=== PATIENT | male | born 1960 | race Caucasian/White ===

== ENCOUNTER 2018-12-29 15:03 | Inpatient (IN) | payer OTHER ==
[2018-12-29] MEDS ORDERED: Ondansetron INJ* 2 MG/ML VIAL ONE (15:26)
[2018-12-29] MEDS ORDERED: fentaNYL* 50 MCG/ML 2 ML VIAL (100 MCG VIAL) ONE (15:55)
--- NOTE | 2018-12-29 15:56 | ED ---
HPI Chest Pain - HPI Summary HPI Summary: Pt was brought in by EMS on STEMI alert. He had been having stuttering chest pain for several days and eventually called EMS this afternoon with stronger and more persistent pain. Pt was met in the ED by Dr Acosta, my involvement was limited to a brief assessment of mental status, color and respiratory status, which all appeared unremarkable. - History of Current Complaint Chief Complaint: EDChestPainROMI - Allergy/Home Medications Allergies/Adverse Reactions: Allergies Allergy/AdvReac Type Severity Reaction Status Date / Time No Known Allergies Allergy Verified 03/29/18 09:28 PMH/Surg Hx/FS Hx/Imm Hx Endocrine/Hematology History: Denies: Hx Diabetes Cardiovascular History: Reports: Hx Hypercholesterolemia, Hx Hypertension - ON MEDICATION FOR Denies: Hx Pacemaker/ICD Respiratory History: Reports: Hx Sleep Apnea - NONE NOW THAT HAS HAD TONSILS REMOVED PER PATIENT Denies: Hx Asthma History: Denies: Hx Dialysis, Hx Renal Disease Musculoskeletal History: Reports: Hx Back Problems, Other Musculoskeletal History - Torn R Rotator cuff, 3 herniated discs in neck, dejenerative disc in back Sensory History: Reports: Hx Contacts or Glasses - contacts Denies: Hx Hearing Aid Opthamlomology History: Reports: Hx Contacts or Glasses - contacts Neurological History: Reports: Hx Headaches - 4-5 WK, Other Neuro Impairments/ Disorders - ON ADDERALL-TO HELP STAY AWAKE DURING THE DAY. PAIN CLINIC PT. Psychiatric History: Reports: Hx Attention Deficit Hyperactivity Disorder Denies: Hx Panic Disorder - Surgical History Surgery Procedure, Year, and Place: 2009 [place]ON[place]OMY [facility] [place] 2009 LYPOMA [facility] [place]. 2011 BILATERAL CARPAL TUNNEL RELEASE Hx Anesthesia Reactions: No Infectious Disease History: Denies: Traveled Outside the [place] in Last 30 Days - Family History Known Family History: Positive: Cardiac Disease, Diabetes, Other - neg lupus; neg rheumatic dz. - Social History Alcohol Use: None Hx Substance Use: No Substance Use Type: Reports: None Hx Tobacco Use: No Smoking Status (MU): Never Smoked Tobacco Review of Systems Positive: Chest Pain All Other Systems Reviewed And Are Negative: No Physical Exam - Summary Physical Exam Summary: General: This is a well-developed, well- nourished man lying on the stretcher in no apparent distress. The patient does not appear ill or toxic. Neck: No obvious swellings. Lungs: There are no signs of respiratory distress. Coronary: Peripheral perfusion is good. Abdomen: The abdomen appears normal and is nondistended. Genitourinary: Deferred Back: Good range of motion is observed. Extremities: Good range of motion was observed in all 4 extremities. There is no sign of any trauma to the extremities. Neurologic: The patient is awake and alert, speech is fluent and conversation is appropriate. Psychiatric: The patients affect is felt to be normal and appropriate. There is no sign of any hallucinations or delusions, or any other signs of psychosis. Diagnostics - Laboratory Result Diagrams: 12/30/18 04:17 12/30/18 04:17 Lab Statement: Any lab studies that have been ordered have been reviewed, and results considered in the medical decision making process. Chest Pain Course/Dx - Diagnoses Provider Diagnoses: Acute ST elevation myocardial infarction (STEMI) of inferior wall Discharge - Sign-Out/Discharge Documenting (check all that apply): Patient Departure Patient Received Moderate/Deep Sedation with Procedure: No - Discharge Plan Condition: Good Disposition: ADMITTED TO [facility] - Billing Disposition and Condition Condition: GOOD Disposition: Admitted to [facility]
[2018-12-29] MEDS ORDERED: Nitroglycerin TAB 0.4 MG* 0.4 MG TAB SL PRN (16:38)
[2018-12-29] MEDS ORDERED: NS 0.9% 1000 ML** 1,000 ML IV SCH (16:45)
[2018-12-29] MEDS ORDERED: Atorvastatin* 80 MG TAB PO SCH (17:00)
[2018-12-29 17:19] LABS: ABS Basophils 0.1 10^3/ul (0-0.2); ABS Eosinophils 0.1 10^3/ul (0-0.6); ABS Lymphocytes 1.2 10^3/ul (1.0-4.8); ABS Monocytes 0.5 10^3/ul (0-0.8); Eosinophil % 1.2 %; Hematocrit 51 % (42-52); Lymphocyte % 13.1 %; Mean Corpuscular HGB Conc 34 g/dL (31-36); Mean Corpuscular Hemoglobin 28 pg (27-31); Mean Corpuscular Volume 84 fL (80-94); Mean Platelet Volume 8.8 fL (7.4-10.4); Nucleated Red Blood Cells % 0.4; Platelet Count 156 10^3/uL (150-450); Red Blood Count 6.06 10^6 /uL (4.18-5.48); Red Cell Distribution Width 14 % (10-15); White Blood Count 8.8 10^3/uL (3.5-10.8)
[2018-12-29 17:36] LABS: ALT 53 U/L (7-52); AST 33 U/L (13-39); Albumin 4.1 g/dL (3.2-5.2); Albumin/Globulin Ratio 1.5 (1-3); Alkaline Phosphatase 90 U/L (34-104); Anion Gap 4 mmol/L (2-11); BUN/Creatinine Ratio 12.6 (8-20); Blood Urea Nitrogen 14 mg/dL (6-24); CO2 Carbon Dioxide 28 mmol/L (22-32); Calcium 8.8 mg/dL (8.6-10.3); Chloride 103 mmol/L (101-111); Creatine Kinase 109 U/L (10-223); EGFR African American 82.9 (>60); EGFR Non-African American 68.5 (>60); Globulin 2.8 g/dL (2-4); Glucose 116 mg/dL (70-100); Potassium 4.4 mmol/L (3.5-5.0); Sodium 135 mmol/L (135-145); Total Protein 6.9 g/dL (6.4-8.9)
[2018-12-29 17:37] LABS: Troponin I 0.51 ng/mL (<0.04)
[2018-12-29] MEDS: Metoprolol Tartrate TAB* 25 MG PO SCH (17:41)
[2018-12-29] MEDS ORDERED: Acetaminophen TAB* 325 MG PO PRN (17:57)
[2018-12-29] MEDS ORDERED: nitroGLYCERIN DRIP* 25,000 MCG/250 ML BTL IV SCH (18:00)
[2018-12-29] MEDS ORDERED: Lidocaine PATCH 5%* 1 PATCH TRANSDERM PRN (18:02)
--- NOTE | 2018-12-29 18:34 | CATH ---
"*[facility]* [place] [address] Main: [phone] [email or web address] Cardiac Catheterization Patient: Bro Bergeron : 1960 Study Date: 12/29/2018 Age: 58 Gender: M HR: Height: 70 in /177.8 cm BSA: 2.08 m^2 Weight: 190.1 lb /86.4 kg BMI: 27.3 kg/m^2 Counselor Aid: Stevan Acosta MD Ordering Physician: Stevan Acosta MD Referring Physician: Stevan Acosta MD, Stefek Paul, --- Procedures performed: - Right coronary angiography. - Left coronary angiography. - Left heart catheterization with angiography. - Percutaneous intervention on the 100% stenosis in the mid right coronary. Stent placement. Balloon angioplasty. Summary: 1. Left main: Distal vessel lesion: There is a 65-70% stenosis. There was haze noted. 2. LAD: Ostial lesion: There is an 80% stenosis. Mid-vessel lesion: There is an 85% stenosis just after the 2nd septal dinkey operator slag.. 3. Left circumflex: Proximal vessel lesion: There is an 85% stenosis. 4. Right coronary: Mid-vessel lesion: The diagnostic study demonstrated a 35 mm (L), 100% stenosis. The lesion is a likely culprit for the patient's clinical presentation. The lesion presents an ACC/AHA type C "high risk" lesion for intervention. Stent placement was performed (see 1st lesion intervention). Following intervention, there is no residual stenosis with SAMY grade 3 flow (brisk flow). Residual significant disease was seen in the proximal posterior descending artery and in the proximal posterior left ventricle branch. 5. Right posterior descending: Proximal vessel lesion: There is an 80% stenosis. 6. 2nd right posterolateral: Lesion: There is a 65% hazy proximal stenosis. 7. Left ventricle: Systolic function is mildly to moderately reduced. The estimated ejection fraction is 40-45%. Moderate hypokinesis of the posterobasal myocardium. Moderate hypokinesis of the apical myocardium. Mild hypokinesis of the anterolateral myocardium. Recommendations: 1. The patient underwent successful coronary percutaneous coronary intervention with 3 stents placed to the mid to distal right coronary artery. He has significant residual disease as described below. 2. The patient will be transferred to [facility] for coronary artery bypass surgery. History: Risk factors: Hypertension. Dyslipidemia. Medications: The patient received no antianginal therapy in the last two weeks. Study data: Study status: Cardiac cath: emergent. Percutaneous coronary intervention: emergent. Immediate percutaneous coronary intervention for STEMI. ST-elevated myocardial infarction or STEMI equivalent was noted on the first ECG. The first device was activated on 12/29/2018at 03:29 PM. The patient originally presented to an outside facility on 12/29/2018 and was transferred here for immediate PCI for STEMI. Location: Catheterization laboratory. Consent: The risks, benefits, and alternatives to the procedure were explained to the patient and/or their healthcare medical collections representative and written informed consent was obtained. All available pre-procedure labs were reviewed. Height: 177.8 cm. 70 in. Weight: 86.4 kg. 190.1 lb. Body surface area: 2.08 m^2. Body mass index: 27.3 kg/m^2. Procedure: 1. Initial setup. The patient was brought to the laboratory. Surface ECG leads, blood pressure measurements, and pulse oximetric signals were monitored. A baseline seven lead ECG was recorded. A time out was observed per protocol. 2. Skin preparation. The planned puncture sites were prepped and draped in the usual sterile manner. 3. Local anesthesia. 1% lidocaine was administered. 4. Supplemental oxygen. Oxygen, 2 L/min was administered throughout the procedure. 5. Local anesthesia. 1% lidocaine (2 ml) was administered. 6. Right radial artery access. A 6F Glidesheath Slender sheath was advanced into the vessel. 7. ACT was 227 sec. This was reflective of the 7,000 units given when he first arrived to the lab. An Additional 2000units were given. 8. ACT was 562 sec. 9. A stent was placed in the stenosis in the mid right coronary artery. See detailed description below (1st lesion intervention). 10. Selective right coronary angiography. An IR 1.5 Heartrail III 6F catheter was advanced into the right coronary vessel ostium under fluoroscopic guidance. Contrast was injected using 2 injections. Images were obtained in multiple projections. 11. Selective left coronary angiography. The procedure was attempted using a 5F TIG 4.0 catheter, but proper positioning could not be achieved, and the catheter was exchanged for a 5F FL 4.0 Diagnostic Impulse catheter which was advanced into the left coronary vessel ostium under fluoroscopic guidance. Contrast was injected using 2 injections. Images were obtained in multiple projections. 12. Left heart catheterization with angiography. A 5F PIG Short Radial catheter was advanced across the aortic valve to the left ventricle under fluoroscopic guidance. 24 ml of contrast was injected at 12 ml/s. 13. Right radial artery hemostasis. Vessel closure was achieved with a Regular Vasc Band device. Study completion: Minimal estimated blood loss. All catheters inserted during the procedure were removed. There were no apparent complications. Administered medications: Nitroglycerin, infusion, at a rate of 3mcg/min, IV. (Radial) Nitroglycerin, 300mcg, intra-arterially. (Radial) Verapamil, 3mg, intra-arterially. Nitroglycerin, infusion, at a rate of 5mcg/min, IV. LOPRESSOR (Metoprolol), 2.5mg, IV. Nitroglycerin, infusion, at a rate of 3mcg/min, IV. Fentanyl, 25mcg, IV. Nitroglycerin, infusion, at a rate of 5mcg/min, IV. Nitroglycerin, infusion, at a rate of 10mcg/min, IV. BRILINTA (Ticagrelor), 180mg, PO. Heparin, for a total dose of 9000units, IV. VERSED (Midazolam), for a total dose of 2mg, IV. Contrast: Omnipaque 350 200 ml (total dose). Omnipaque 350 200 ml (wasted). Radiation: Fluoroscopy time: 19.9 min. Air kerma - 2663 mGy. DAP 28623 microGy/m2 Discharge: The patient tolerated the procedure well and was discharged from the lab in stable condition. Interventional narrative: 1st lesion intervention: Percutaneous intervention on the 100% stenosis in the mid right coronary. 1. Guider placement: an IR 1.5 Heartrail III 6F guiding catheter was placed. 2. A 190cm All Star Guide wire was placed across the lesion. 3. Balloon angioplasty. A 2.5 mm (D) x 15 mm (L), Emerge MR balloon was employed. The balloon was placed across the lesion and given a single inflation with a maximum inflation pressure of 11 ronald. 4. Stent placement. A 3 mm (D) x 35 mm (L), Orsiro Sirolumus Eluting Coronary stent was used. The stent was advanced across the lesion and deployed with a single inflation and a maximum pressure of 16 ronald. 5. Stent placement. A 3.5 mm (D) x 15 mm (L), Orsiro Sirolimus Eluting Coronary stent was used. The stent was advanced across the lesion and deployed with a single inflation and a maximum pressure of 16 ronald. 6. Stent placement. A 3.5 mm (D) x 13 mm (L), Orsiro Sirolimus Eluting Coronary stent was used. The stent was advanced across the lesion and deployed with a single inflation and a maximum pressure of 17 ronald. 7. Balloon angioplasty. A 3 mm (D) x 30 mm (L), NC Emerge balloon was employed. The balloon was placed across the lesion and given two inflations with a maximum inflation pressure of 18 ronald. 8. Balloon angioplasty. A 3.5 mm (D) x 20 mm (L), NC Emerge balloon was employed. The balloon was placed across the lesion and given two inflations with a maximum inflation pressure of 15 ronald. Findings Coronary arteries: The coronary circulation is right dominant. The left anterior descending gives rise to 3 diagonals. The first diagonal has a high origin. The second diagonal branch was a small caliber vessel. The third was a moderate to large size vessel extending to the lateral apical wall. The left circumflex gives rise to 2 obtuse marginals. The right coronary gives rise to the posterior descending artery and 3 posterolaterals. Left main: Distal vessel lesion: There is a 65-70% stenosis. There was haze noted. LAD: Ostial lesion: There is an 80% stenosis. Mid-vessel lesion: There is an 85% stenosis just after the 2nd septal dinkey operator slag. Left circumflex: Proximal vessel lesion: There is an 85% stenosis. Right coronary: Mid-vessel lesion: The diagnostic study demonstrated a 35 mm (L), 100% stenosis. There is no evidence of thrombus. It is not a bifurcation lesion. There is SAMY grade 0 flow (no flow) across the lesion. On wire placement there was flow established showing a long diffusely diseased segment in the mid to distal right coronary artery. The lesion is a likely culprit for the patient's clinical presentation. The lesion presents an ACC/AHA type C "high risk" lesion for intervention. Stent placement was performed (see 1st lesion intervention). Following intervention, there is no residual stenosis with SAMY grade 3 flow (brisk flow). Residual significant disease was seen in the proximal posterior descending artery and in the proximal posterior LVbranch. Right posterior descending: Proximal vessel lesion: There is an 80% stenosis. 2nd right posterolateral: Medium-sized, unusually long. Lesion: There is a 65% hazy proximal stenosis. Left ventricle: Systolic function is mildly to moderately reduced. The estimated ejection fraction is 40-45%. Regional wall motion abnormalities: Moderate hypokinesis of the posterobasal myocardium. Moderate hypokinesis of the apical myocardium. Mild hypokinesis of the anterolateral myocardium. Hemodynamics: + + + |Stage description |Condition 1 - | + + + |LV pressure s/d, ed |178/15, 26, dP/ju=8209 mm Hg/s| + + + |Arterial pressure s/d (m)|198/112 (150) | + + + Prepared and electronically signed by Stevan Acosta MD 12/29/2018 18:33"
--- NOTE | 2018-12-29 19:22 | CONS ---
CC: Dr. Kristal Rodriguez; Dr. Stevan Acosta * CONSULTATION REPORT: DATE OF CONSULT: 12/29/18 PRIMARY CARE PROVIDER: Dr. Kristal Rodriguez. DEBRIDGING MACHINE OPERATOR: Dr. Stevan Acosta. REQUESTING PHYSICIAN IN CONSULT: Dr. Stevan Acosta. ATTENDING PHYSICIAN: Dr. Bisi Osuna * (dictated by ÁNGEL Russell). REASON FOR CONSULT: Cervical spine pain, lumbar spine pain. HISTORY OF PRESENT ILLNESS/HOSPITAL COURSE: Mr. Bergeron is a 58-year-old male with a past medical history of hypertension, hyperlipidemia, degenerative disk disease in both cervical and lumbar spines and lumbar stenosis, who presented to the ER today and was found to have a STEMI that required cardiac catheterization. Dr. Acosta is managing this. He has consulted the hospitalist team for management of the patient's chronic low back pain. The patient states that he typically takes Voltaren for his low back pain with no other medications. He has noted in the past to have had epidural steroid injections, which he has not had in approximately 1 year. Currently, the patient denies pain in the back, but notes that he feels "fidgety" and feels as if he cannot get comfortable. He states that his left SI joint feels painful and swollen. He denies numbness or tingling in the legs, although he does note that he does occasionally have this. He denies pain in the upper extremities or lower extremities. He denies shortness of breath, abdominal pain, nausea, vomiting, diarrhea, constipation. PAST MEDICAL HISTORY: 1. Hypertension. 2. Hyperlipidemia. 3. Coronary artery disease. 4. Lumbar stenosis. 5. Degenerative disk disease. PAST SURGICAL HISTORY: Bilateral carpal tunnel release, tonsillectomy, lipoma removal. HOME MEDICATIONS: 1. Nuvigil 150 mg p.o. daily. 2. Aspirin 325 mg p.o. daily. 3. Diclofenac 100 mg p.o. b.i.d. 4. Simvastatin 10 mg p.o. q.a.m. DRUG ALLERGIES: No known drug allergies. FAMILY HISTORY: Father had CAD. Mother and father both had diabetes. The patient believes that his mother had cancer. Denies history of CVA. SOCIAL HISTORY: The patient denies current or former tobacco use. He no longer uses alcohol. He denies any other illicit drug use. 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 He lives with his and 2 children. In the event that he is unable to make his own medical decisions, he has appointed his , Melanie Bergeron, to be his surrogate decision maker. REVIEW OF SYSTEMS: A 10-point review of systems has been performed and all the pertinent positives and negatives are in the HPI. All other systems are negative. PHYSICAL EXAM: General: Mr. Bergeron is a well-developed, well-nourished, middle- aged white man, who is obese. He is sitting up in his bed with the head of bed elevated. He is cooperative and appropriate. He fidgets frequently and seems somewhat uncomfortable, but otherwise he is pleasant and cooperative. He is in no acute distress. Vital Signs: Temperature 97.8 oral, heart rate 78, respiratory rate 19, oxygen saturation 96%, blood pressure 156/ 98. HEENT: Normocephalic, atraumatic. EOMI. Oral mucous membranes are moist without lesions. Hearing is grossly intact. Cardiovascular: Regular rate and rhythm with S1, S2 present without murmurs, rubs, clicks, or gallops. There is no JVD. Respiratory: Symmetrical chest expansion without use of accessory muscles. Lungs are clear to auscultation bilaterally without wheezes, rhonchi, or rales. Abdomen: Bowel sounds noted in all quadrants. The abdomen is soft without tenderness to palpation without hepatosplenomegaly. Musculoskeletal: Spine is nontender to palpation. The patient has full range of motion that is nonpainful. He is able to move all of his extremities. Extremities: Skin is warm and smooth bilaterally without clubbing, cyanosis, or edema. Radial and pedal pulses are palpable. Neuro: He is awake. He is alert and oriented without focal neurological deficits. ASSESSMENT AND PLAN: Mr. Bergeron is a 58-year-old male with a past medical history of hypertension, hyperlipidemia, who presented to [facility] today and was found to have a ST-elevation myocardial infarction requiring cardiac catheterization. The patient will be admitted inpatient for: 1. ST-elevation myocardial infarction. Management per Dr. Acosta. 2. Cervical, lumbar spine pain. The patient has a history of degenerative disk disease as well as stenosis in both cervical and lumbar areas. He typically takes Voltaren at home. Due to the patient's current situation, this medication is not recommended. Ultram 25 mg p.o. q.12 hours p.r.n. pain ordered. Tylenol ordered. Lidocaine patches have been ordered. Application of ice/heat may be used for pain relief. Lorazepam 0.5 mg p.o. b.i.d. p.r.n. agitation, anxiety, unrest also ordered. 3. Hypertension. Per Cardiology, continue metoprolol. 4. Hyperlipidemia. Continue atorvastatin. 5. Code status: Full code. 6. DVT prophylaxis: Per Cardiology, the patient has not been placed on chemoprophylaxis. The hospitalist teams thanks you for this consult. We will continue to follow along peripherally. Please call as needed for further recommendations. TIME SPENT: Approximately 35 minutes was spent on this consultation, greater than half that time was spent with the patient obtaining history, performing physical, and reviewing the plan of care. The case has been reviewed with my attending, Dr. Osuna, who is in agreement with the plan of care. NOLAN ESTRADA, ÁNGEL [id number]/[facility] #: [id number] PIERRE
--- NOTE | 2018-12-29 19:46 | HP ---
CC: Dr. Kristal Rodriguez ADMISSION HISTORY AND PHYSICAL: DATE OF ADMISSION: 12/29/18 CHIEF COMPLAINT: Severe chest discomfort with EKG demonstrating acute ST segment inferior wall myocardial infarction. HISTORY OF PRESENT ILLNESS: The patient is a 58-year-old gentleman with no prior known history of coronary artery disease. He states he was in usual state of health and over the past 4 days has been having intermittent chest discomfort. Today, he developed severe chest and throat discomfort that was, he felt, persistent in nature since 10 a.m. this morning. Eventually, he sought medical attention and ambulance was called. The ambulance performed an EKG and found acute ST segment elevation inferior wall myocardial infarction and called a STEMI alert into [facility]. On arrival, the patient was still having significant symptoms of chest and throat discomfort and diaphoresis. He was very anxious. He was not having any significant shortness of breath, nausea , or vomiting. A discussion was made with him emergently as he presented to the emergency room to bypass the emergency room, to go for emergent cardiac catheterization and he understood and agreed with it. The risks and benefits were explained and he understood them. REVIEW OF SYSTEMS: As above, also pertinent to proceeding to the cardiovascular lab, he denies any history of stroke or TIA, any history of hematochezia, hematemesis,hematuria, or renal insufficiency. PAST MEDICAL HISTORY: Significant for hypertension, hyperlipidemia, sleep apnea with a history of syncope evaluated back in 2007, and attention deficit disorder. He has a history in the past of Natarajan's palsy as well. He denies any history of diabetes. PAST SURGICAL HISTORY: Includes vasectomy, carpal tunnel release, excision of a lipoma, and tonsillectomy. MEDICATIONS: Medications that were last available to us from an office visit of 08/03/[address] Rodriguez's office included: 1. Armodafinil 150 mg 1 by mouth every morning or prior to the shift supervisor film processing. 2. Diclofenac 100 mg twice a day as needed. 3. Simvastatin 10 mg a day. 4. Aspirin 325 a day. He admits that he was not taking medicines consistently. FAMILY HISTORY: Includes coronary artery disease with a father who had a heart attack young in life and at the age of 71 from diabetes complications. Mother with hypertension, diabetes, and renal failure. Two siblings. SOCIAL HISTORY: He has never smoked. He rarely consumes alcohol. He denies any drug usage. PHYSICAL EXAMINATION VITAL SIGNS: When I saw him in the emergency room and in the bean sprout laborer revealed blood pressure 180/100, pulse was in the 80s. NECK: Supple. Carotids had good upstroke and volume. LUNGS: Clear. HEART: Had a regular rate and rhythm with no significant systolic or diastolic murmur. ABDOMEN: Soft, nontender. EXTREMITIES: Without edema. Peripheral pulses were intact. Right radial artery pulse was intact. NEUROLOGIC: The patient was alert, oriented with normal mentation. MUSCULOSKELETAL: The patient moves all extremities appropriate. PSYCHOLOGICAL: The patient had appropriate affect. DIAGNOSTIC STUDIES/LAB DATA: Laboratory results not available at the time of initial consultation. Chest x-ray not performed in order to quickly move towards getting to the bean sprout laborer for emergent intervention. Electrocardiogram by the paramedics revealed ST segment elevation in II, III, aVF with reciprocal change in aVL and somewhat in lead I. There was mild ST segment downsloping in V2. Mild ST elevation was seen in V5 and V6. OVERALL ASSESSMENT: Mr. Bergeron now presents with an acute ST segment elevation inferior wall myocardial infarction. The risks and benefits were explained to him, he understood them and wished to proceed directly to the cardiovascular laboratory. Further management will be made pending results of the cardiac catheterization. [id number]/[facility] #: [id number] PIERRE
[2018-12-29] MEDS ORDERED: Lisinopril TAB* 5 MG PO ONE (19:48)
--- NOTE | 2018-12-29 20:46 | HP ---
CC: Dr Grady Gaffney MD , Dr. 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 On presybeterian of flow, a long significant lesion was seen in the omc-md-jmjzri right coronary artery, for which he underwent stenting with 3 drug-eluting stents. Of note, the right coronary artery was addressed emergently given the fact that the patient was in severe distress with chest discomfort and writhing on the table. On turning to the left coronary artery, in several views there appear to be significant multivessel disease involving the distal left main, ostial LAD, mid LAD prior to a moderate to large size third diagonal branch, as well as the proximal circumflex before 2 mid obtuse marginal branches. His overall LV function on ventriculogram revealed an EF of 40% to 45%. There was rhghyrdg-em-qjzrdo hypokinesis of the proximal inferior wall, lukvzxmz-so-flnemu hypokinesis of the apical region, and mild hypokinesis of the anterolateral wall. Of note, the right coronary artery still had residual significant lesions in the proximal portion of the PDA and the proximal portion of a second long posterior left ventricular branch. Laboratory results that came back after the catheterization revealed a hemoglobin and hematocrit of 17 and 51 with a platelet count of 156,000, white count 8800. His sodium was 135, potassium 4.4, chloride 103, bicarb 28, BUN and creatinine were 14 and 1.1 with an estimated GFR of 68.5. His glucose, which was nonfasting, was 165. His SGOT was 53, his total CPK was 109 with an MB of 10% and a troponin of 0.51. His total protein was 6.9 with an albumin of 4.1. His electrocardiogram post cardiac intervention revealed normal sinus rhythm with a heart rate of 70, a normal ND, QRS, and QT interval. There is now a subtle T-wave inversion in 2 with deeper T-wave inversion in 3 and aVF and a poor R-wave in 3 and aVF. Subtle T-wave inversion was noted in V6 and mild hyper QT wave was present in V2. Of note, he was virtually pain free within a short period of time after presenting to the intensive care unit. A discussion was had with the patient as for the need for significant revascularization with best option being bypass surgery given the significant disease present. I had a discussion with the patient and his preference was to go to [facility] when we reviewed choices. I personally spoke with Dr. Billy Gaffney who graciously accepted him in transfer. The patient will be transferred within the next 24 hours. Unfortunately, given the fact that we had him on Brilinta, we will have to wait for the Brilinta to wear off, but clearly it would be best to have that done up at the institution where bypass surgery was to be performed in case he gets into any trouble. For now, he is maintained on IV nitroglycerin drip, metoprolol 25 mg q.8 hours, aspirin, and he will get a dose of Brilinta tonight, but none starting tomorrow morning. He was given 80 mg of atorvastatin as well. Ideally,we will also start him on lisinopril giving him 2.5 mg tonight and then have that increased as tolerated from blood pressure up in [facility]. MEDICATIONS AT THE TIME OF DISCHARGE: Include: 1. Metoprolol 25 mg q.8 hours. 2. Atorvastatin 80 mg a day. 3. Aspirin 81 mg a day. 4. Ticagrelor only tonight 90 mg, then none starting the morning of 12/30/18. 5. Captopril 6.25 mg TID to be increased as blood pressure tolerates. [id number]/[facility] #: [id number] MTDD
[2018-12-29] MEDS ORDERED: traMADol TAB* 50 MG PO PRN (21:00)
[2018-12-29] MEDS ORDERED: Ticagrelor* 90 MG TAB PO SCH (21:00)
[2018-12-29] MEDS: LORazepam TAB(*) 0.5 MG PO PRN (21:58)
[2018-12-29] MEDS: Captopril TAB* 12.5 MG PO SCH (21:58)
[2018-12-29 23:07] LABS: Creatine Kinase 242 U/L (10-223)
[2018-12-29 23:13] LABS: CKMB ng/mL 34.3 ng/mL (0.6-6.3)
[2018-12-29 23:14] LABS: Troponin I 3.12 ng/mL (<0.04)
[2018-12-30] MEDS: Metoprolol Tartrate TAB* 25 MG PO SCH ×2 (02:03→07:22)
[2018-12-30 04:55] LABS: Creatine Kinase 311 U/L (10-223)
[2018-12-30 05:02] LABS: CKMB ng/mL 57.5 ng/mL (0.6-6.3)
[2018-12-30 06:09] LABS: ALT 51 U/L (7-52); AST 51 U/L (13-39); Albumin 3.8 g/dL (3.2-5.2); Albumin/Globulin Ratio 1.5 (1-3); Alkaline Phosphatase 80 U/L (34-104); Anion Gap 8 mmol/L (2-11); BUN/Creatinine Ratio 11.6 (8-20); Blood Urea Nitrogen 13 mg/dL (6-24); CO2 Carbon Dioxide 25 mmol/L (22-32); Calcium 8.6 mg/dL (8.6-10.3); Chloride 105 mmol/L (101-111); Cholesterol 192 mg/dL; EGFR African American 82.1 (>60); EGFR Non-African American 67.8 (>60); Globulin 2.5 g/dL (2-4); Glucose 97 mg/dL (70-100); HDL Cholesterol 32.8 mg/dL; LDL Cholesterol 115 mg/dL; Sodium 138 mmol/L (135-145); Total Protein 6.3 g/dL (6.4-8.9); Triglycerides 220 mg/dL
[2018-12-30 06:26] LABS: ABS Eosinophils 0.2 10^3/ul (0-0.6); ABS Lymphocytes 1.4 10^3/ul (1.0-4.8); ABS Monocytes 0.9 10^3/ul (0-0.8); ABS Neutrophils 7.3 10^3/ul (1.5-7.7); Eosinophil % 1.6 %; Hematocrit 48 % (42-52); Hemoglobin 16.5 g/dL (14.0-18.0); Lymphocyte % 14.6 %; Mean Corpuscular HGB Conc 34 g/dL (31-36); Mean Corpuscular Hemoglobin 29 pg (27-31); Mean Corpuscular Volume 83 fL (80-94); Nucleated Red Blood Cells % 0.1; Platelet Count 155 10^3/uL (150-450); Red Blood Count 5.78 10^6 /uL (4.18-5.48); Red Cell Distribution Width 14 % (10-15); White Blood Count 9.8 10^3/uL (3.5-10.8)
[2018-12-30] MEDS ORDERED: Lidocaine Patch REMOVE* 1 NOTE MISC PATCH OFF SCH (06:30)
[2018-12-30] MEDS: LORazepam TAB(*) 0.5 MG PO PRN (07:03)
[2018-12-30 07:05] VITALS: BP 149/82
[2018-12-30] MEDS: Captopril TAB* 12.5 MG PO SCH (07:22)
--- NOTE | 2018-12-30 07:50 | DS ---
TRANSFER NOTE: DATE OF ADMISSION: DATE OF TRANSFER: 12/30/18 ADDENDUM: This morning at the time of discharge, the patient was stable without any significant chest discomfort. He was transferred to [facility] in stable condition. [id number]/[facility] #: [id number] MTDD
[2018-12-30] MEDS ORDERED: Lisinopril TAB* 5 MG PO SCH (09:00)
[2018-12-30] MEDS ORDERED: Aspirin 81 mg CHEW TAB* 81 MG TAB.CHEW PO SCH (09:00)
== END 2018-12-30 07:30 | disposition short-term general hospital (02) | DRG 247 ==
LOC: ED 15:03 → CHICATH 15:10 → ICU 16:58
PROVIDERS: ADMIT Internal Medicine Cardiovascular Disease; ATTEND Internal Medicine Cardiovascular Disease
PROC: B2111ZZ Fluoroscopy of Multiple Coronary Arteries using Low Osmolar Contrast (ICD-10-PCS; 2018-12-29)
PROC: 4A023N7 Measurement of Cardiac Sampling and Pressure, Left Heart, Percutaneous Approach (ICD-10-PCS; 2018-12-29)
PROC: B2151ZZ Fluoroscopy of Left Heart using Low Osmolar Contrast (ICD-10-PCS; 2018-12-29)
PROC: 027036Z Dilation of Coronary Artery, One Artery with Three Drug-eluting Intraluminal Devices, Percutaneous Approach (ICD-10-PCS; principal; 2018-12-29 15:00)
DX: I21.19 ST elevation (STEMI) myocardial infarction involving other coronary artery of inferior wall (principal); E78.00 Pure hypercholesterolemia, unspecified; I10 Essential (primary) hypertension; G47.30 Sleep apnea, unspecified; F90.9 Attention-deficit hyperactivity disorder, unspecified type; E78.5 Hyperlipidemia, unspecified; M48.061 Spinal stenosis, lumbar region without neurogenic claudication; M47.816 Spondylosis without myelopathy or radiculopathy, lumbar region; G89.29 Other chronic pain; M48.02 Spinal stenosis, cervical region; M50.30 Other cervical disc degeneration, unspecified cervical region; I25.10 Atherosclerotic heart disease of native coronary artery without angina pectoris; Z82.49 Family history of ischemic heart disease and other diseases of the circulatory system; Z83.3 Family history of diabetes mellitus; Z98.52 Vasectomy status; Z84.1 Family history of disorders of kidney and ureter; Z79.82 Long term (current) use of aspirin; Z79.02 Long term (current) use of antithrombotics/antiplatelets
CPT/HCPCS: 36415; 76937; 80053; 80061; 82550; 82553; 84484; 85025; 85347; 93005; 99285; A9270-GY; C1725; C1769; C1874; C9606-RC; J2405; J3010

== ENCOUNTER 2019-09-23 22:39 | Emergency (ER) | payer OTHER ==
[2019-09-23] MEDS ORDERED: Ondansetron INJ* 2 MG/ML VIAL IV ONE (22:52)
[2019-09-23] MEDS ORDERED: NS 0.9% 1000 ML** 1,000 ML IV ONE (22:52)
--- NOTE | 2019-09-23 22:53 | ED ---
Nausea/Vomiting/Diarrhea HPI - HPI Summary HPI Summary: Patient complains of sudden onset chills, nausea, vomiting and headache starting at 2 PM today. Vomiting 3. Denies known covid exposure, recent travel, fever, cough, sore throat, CP, SOB, abdominal pain, change in urine, change in BM. Medical history hypertension and cardiac bypass surgery December 2018.. Denies eating unusual foods. - History of Current Complaint Chief Complaint: EDNauseaVomitDiarrh Stated Complaint: FEVER/VOMITING PER PT Time Seen by Provider: 09/23/19 22:49 Hx Obtained From: Patient Onset/Duration: Sudden Onset, Lasting Hours Severity Currently: None Pain Intensity: 0 Pain Scale Used: 0-10 Numeric Alleviating Factor(s): Vomiting Nausea/Vomiting Presence: Vomiting Vomiting Frequency: Every 3-4 hours Vomiting Characteristics: Nonbilious Diarrhea Presence: No - Allergies/Home Medications Allergies/Adverse Reactions: Allergies Allergy/AdvReac Type Severity Reaction Status Date / Time No Known Allergies Allergy Verified 09/23/19 23:15 Home Medications: Home Medications Simvastatin 10 mg PO QAM 10/07/12 [History Confirmed 03/29/18] Armodafinil (NF) [Nuvigil (NF)] 150 mg PO DAILY 03/10/18 [History Confirmed ] Aspirin 325 mg PO DAILY 03/10/18 [History Confirmed 03/29/18] Diclofenac Sodium [Voltaren-Xr] 100 mg PO BID 03/10/18 [History Confirmed ] Ondansetron ODT TAB* [Zofran 4 MG Odt TAB*] 4 mg PO Q8H PRN 4 Days #14 tab.odt 09/24/19 [Rx] PMH/Surg Hx/FS Hx/Imm Hx Endocrine/Hematology History: Denies: Hx Diabetes Cardiovascular History: Reports: Hx Hypercholesterolemia Denies: Hx Hypertension, Hx Pacemaker/ICD Respiratory History: Reports: Hx Sleep Apnea - NONE NOW THAT HAS HAD TONSILS REMOVED PER PATIENT Denies: Hx Asthma History: Denies: Hx Dialysis, Hx Renal Disease Musculoskeletal History: Reports: Hx Back Problems, Other Musculoskeletal History - Torn R Rotator cuff, 3 herniated discs in neck, dejenerative disc in back Sensory History: Reports: Hx Contacts or Glasses - contacts Denies: Hx Hearing Aid Opthamlomology History: Reports: Hx Contacts or Glasses - contacts Neurological History: Reports: Hx Headaches - 4-5 WK, Other Neuro Impairments/ Disorders - ON ADDERALL-TO HELP STAY AWAKE DURING THE DAY. PAIN CLINIC PT. Psychiatric History: Reports: Hx Attention Deficit Hyperactivity Disorder Denies: Hx Panic Disorder - Surgical History Surgery Procedure, Year, and Place: [place] [facility] [place] [facility] [place] BILATERAL CARPAL TUNNEL RELEASE Hx Anesthesia Reactions: No Infectious Disease History: No Infectious Disease History: Denies: Traveled Outside the [place] in Last 30 Days - Family History Known Family History: Positive: Cardiac Disease, Diabetes, Other - neg lupus; neg rheumatic dz. - Social History Alcohol Use: None Hx Substance Use: No Substance Use Type: Reports: None Hx Tobacco Use: No Smoking Status (MU): Never Smoked Tobacco Have You Smoked in the Last Year: No Review of Systems Positive: Chills Eyes: Negative ENT: Negative Cardiovascular: Negative Respiratory: Negative Positive: Vomiting, Nausea Genitourinary: Negative Musculoskeletal: Negative Skin: Negative Neurological/Mental Status: Negative Psychological: Normal All Other Systems Reviewed And Are Negative: Yes Physical Exam Triage Information Reviewed: Yes Vital Signs On Initial Exam: Initial Vitals Temp Pulse Resp BP Pulse Ox 97.5 F 72 18 196/114 99 09/23/19 22:40 09/23/19 22:40 09/23/19 22:40 09/23/19 22:40 09/23/19 22:40 Vital Signs Reviewed: Yes Appearance: Positive: Well-Appearing Skin: Positive: Warm Head/Face: Positive: Normal Head/Face Inspection Eyes: Positive: Normal Neck: Positive: Supple Respiratory/Lung Sounds: Positive: Clear to Auscultation Cardiovascular: Positive: Normal Abdomen Description: Positive: Nontender Musculoskeletal: Positive: Normal Neurological: Positive: Normal Psychiatric: Positive: Normal AVPU Assessment: Alert - Kim Coma Scale Best Eye Response: 4 - Spontaneous Best Motor Response: 6 - Obeys Commands Best Verbal Response: 5 - Oriented Coma Scale Total: 15 Procedures - Sedation Patient Received Moderate/Deep Sedation with Procedure: No Diagnostics - Vital Signs Vital Signs Temp Pulse Resp BP Pulse Ox 09/23/19 22:40 97.5 F 72 18 196/114 99 - Laboratory Result Diagrams: 09/23/19 23:25 09/23/19 23:25 Lab Statement: Any lab studies that have been ordered have been reviewed, and results considered in the medical decision making process. Naus/Vom/Diarrhea Course/Dx - Course Course Of Treatment: Patient complains of sudden onset chills, nausea, vomiting and headache starting at 2 PM today. Vomiting 3. Denies known covid exposure , recent travel, fever, cough, sore throat, CP, SOB, abdominal pain, change in urine, change in BM. Medical history hypertension and cardiac bypass surgery December 2018.. Denies eating unusual foods. BP 196/114. Vital signs otherwise within normal limits. Bili1.4, elevated from prior readings. Labs otherwise unremarkable. CT abdomen and pelvis negative for acute findings. EKG sinus rhythm, heart rate of 65, normal P axis. Nausea controlled with Zofran and Reglan IV. 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 - Differential Dx/Diagnosis Provider Diagnosis: Nausea & vomiting Condition At Discharge: Stable Discharge ED - Sign-Out/Discharge Documenting (check all that apply): Patient Departure - Discharge Plan Condition: Stable Disposition: HOME Prescriptions: Ondansetron ODT TAB* [Zofran 4 MG Odt TAB*] 4 mg PO Q8H PRN 4 Days #14 tab.odt PRN Reason: Nausea Patient Education Materials: Acute Nausea and Vomiting (ED) Referrals: Kristal Rodriguez MD [Primary Care Provider] - Additional Instructions: Take Zofran for nausea as directed. Drink plenty of fluids to maintain hydration. Return to the ED for any new or worsening symptoms. Incidental finding on CAT scan includes Bosniak 2F cyst arising from the lower pole of the right kidney. Recommend CT with and without contrast or MRI are I with and without contrast at 6 months and 12 months then yearly for 5 years. - Billing Disposition and Condition Condition: STABLE Disposition: Home
[2019-09-23 23:45] LABS: ABS Lymphocytes 0.9 10^3/ul (1.0-4.8); ABS Monocytes 0.4 10^3/ul (0-0.8); ABS Neutrophils 4.4 10^3/ul (1.5-7.7); Eosinophil % 0.5 %; Hematocrit 52 % (42-52); Hemoglobin 17.6 g/dL (14.0-18.0); Lymphocyte % 15.7 %; Mean Corpuscular HGB Conc 34 g/dL (31-36); Mean Corpuscular Hemoglobin 28 pg (27-31); Mean Corpuscular Volume 83 fL (80-94); Nucleated Red Blood Cells % 0.5; Platelet Count 125 10^3/uL (150-450); Red Blood Count 6.23 10^6 /uL (4.18-5.48); Red Cell Distribution Width 15 % (10-15); White Blood Count 5.8 10^3/uL (3.5-10.8)
[2019-09-24 00:01] LABS: ALT 30 U/L (7-52); AST 25 U/L (13-39); Albumin 4.2 g/dL (3.2-5.2); Albumin/Globulin Ratio 1.6 (1-3); Alkaline Phosphatase 76 U/L (34-104); Anion Gap 6 mmol/L (2-11); BUN/Creatinine Ratio 16.5 (8-20); Blood Urea Nitrogen 17 mg/dL (6-24); C Reactive Protein 2.43 mg/L (<8.01); CO2 Carbon Dioxide 27 mmol/L (22-32); Calcium 9.1 mg/dL (8.6-10.3); Chloride 102 mmol/L (101-111); EGFR African American 90.1 (>60); EGFR Non-African American 74.4 (>60); Globulin 2.7 g/dL (2-4); Glucose 120 mg/dL (70-100); Sodium 135 mmol/L (135-145); Total Protein 6.9 g/dL (6.4-8.9)
[2019-09-24 00:12] LABS: Troponin I 0.01 ng/mL (<0.03)
[2019-09-24] MEDS ORDERED: Metoclopramide IV* 5 MG/ML 2 ML VIAL IV ONE (00:19)
[2019-09-24] MEDS ORDERED: Iohexol 300* (CONTRAST) 10 ML SDV IV ONE (00:34)
[2019-09-24] MEDS ORDERED: O ndansetron ODT 4MG 5TAB PRPK 4 MG PAK PO ONE (01:19)
[2019-09-24 01:36] VITALS: BP 135/93
--- OUTSIDE RECORDS SUMMARY | 2019-09-24 01:38 | XMS REPORT | Continuity of Care Document ---
:1960 External Reference #:[id number] Author Name Sarah Warren MD Address [address], [address] [place] [address] Problems Active Problems Provider Date Hyperlipidemia Traci Santizo M.D., FAC Onset: 09/10/2010 Sleep apnea Traci Santizo M.D., ROBERTO Onset: 09/10/2010 Essential hypertension Hina Sinha N.P. 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 Onset: 01/12/2018 disc Atherosclerotic heart disease of Stevan Acosta M.D., [facility] Onset: 2018 [place] coronary artery without angina pectoris St elevation (Stemi) myocardial Stevan Acosta M.D., [facility] Onset: 2018 infarction involving right coronary artery Encounter for planned postprocedural Stevan Acosta M.D., [facility], [facility] Onset: wound closure Social History Type Date Description Comments Sex Unknown Tobacco Use Start: Unknown Never Smoked Cigarettes Smoking Status Reviewed: 09/11/19 Never Smoked Cigarettes ETOH Use Rarely consumes alcohol Tobacco Use Start: Unknown Patient has never smoked Recreational Drug Use Denies Drug Use Exercise Type/Frequency Cardiac Rehab Exercise Type/Frequency Walks 3 times a week Allergies, Adverse Reactions, Alerts Active Allergies Reaction Severity Comments Date No Known Drug Allergy 07/16/2010 Bee Sting Urticaria Moderate 04/11/2013 Medications Active Medications SIG Qnty Indications Ordering Date Provider Sonata 1 tab by mouth 30caps G47.00 Sarah Kelvin, 09/11/2019 5mg Capsules as needed for MD sleep Lisinopril 1 by mouth every 90tabs Liborio S. 06/29/2019 10mg Tablets day DO MARIBEL Nelson Vascepa take 2 tablets 360caps E78.5 Liborio S. 05/26/2019 1gm Capsules twice daily with DO Omar FACC meals Metoprolol Succinate ER 1 by mouth every 90tabs Hina Sinha, 04/15/2019 day N.P. 25mg Tablets ER 24HR Cyclobenzaprine HCL Take 1 Tablet By 30tabs M54.5 Hina Sinha, 2018 5mg Mouth AT Bedtime N.P. Tablets as Needed For Back Pain Tramadol HCL 2 tablets three 60tabs M54.5 Hina Sinha, 04/12/2019 50mg Tablets times daily as N.P. needed back pain Clonazepam take 1/2 to 1 30tabs G47.00 Hina Sinha, 04/12/2019 0.5mg Tablets tablet as needed N.P. anxiety and sleep Atorvastatin Calcium 1 by mouth every 90tabs Liborio S. 02/01/2019 80mg day DO MARIBEL Nelson Tablets Nitrostat take as directed 25tabs I25.10 Liborio S. 01/11/2019 0.4mg Tablets Tamica Nelson DO FACC Clopidogrel Bisulfate 1 by mouth every 90tabs Liborio S. 75mg day DO MARIBEL Nelson Tablets Aspirin 81 1 by mouth every 90tabs Liborio S. 81mg Tablets DR wild Nelson DO FACChiki History Medications Azelastine HCL Use 1 inhalation in 30ml J30.0 Hina Sinha, 04/12/2019 - (Nasal) each nostril at N.P. 08/16/2019 0.15% bedtime Solution Immunizations CPT Code Status Date Vaccine Lot # [id number] Given 05/12/2019 Influenza Virus Vaccine, Quadrivalent, Split, Preservative Free 28034 Given 01/07/2007 Tdap - Tetanus/Diptheria/Acellular Pertussis 02457 Given 01/07/2007 Tdap - Tetanus/Diptheria/Acellular Pertussis Vital Signs Date Vital Result Comment 09/11/2019 8:54am Height 66 inches 5'6" Weight 178.00 lb Heart Rate 71 /min BP Systolic Sitting 122 mmHg BP Diastolic Sitting 84 mmHg Body Temperature 97.0 F O2 % BldC Oximetry 95 % BMI (Body Mass Index) 28.7 kg/m2 05/26/2019 3:42pm Height 66 inches 5'6" Weight 177.25 lb with shoes Heart Rate 94 /min BP Systolic Sitting 126 mmHg Rue reg cuff BP Diastolic Sitting 90 mmHg Rue reg cuff BP Systolic Standing 132 mmHg Rue reg cuff BP Diastolic Standing 96 mmHg Rue reg cuff Respiratory Rate 16 /min BMI (Body Mass Index) 28.6 kg/m2 Ejection Fraction 55-60% ECHO 05/04/2019 Results Test Acquired Date Facility Test Result H/L Range Note Order 05/04/2019 [facility] Echocardiogram <pending > [facility] [place] [address] [phone] Procedures Date Code Description Status 05/04/2019 56029 ECHO Transthoracic, Real-Time 2D With Doppler And Color Completed Flow 05/04/2019 53483 ECHO Transthoracic, Real-Time 2D With Doppler And Color Completed Flow 05/29/2013 [id number] Colonoscopy Completed Medical Devices Description No Information Available Encounters Type Date Location Provider Dx Diagnosis Office Visit 09/11/2019 Pulmonology And Sarah Kelvin, G47.33 Obstructive sleep 9:00a [facility] (adult) [facility] (pediatric) R53.83 Other fatigue G47.00 Insomnia, unspecified Office Visit 05/26/2019 4:00p [facility] Liborio Schneider I25.10 [facility] Omar DO disease of [facility] [place] coronary artery w/o ang pctrs I25.2 Old myocardial infarction E78.5 Hyperlipidemia, unspecified E78.1 Pure hyperglyceridemia Office Visit 04/12/2019 10:40a [facility] Internal Hina Sinha, J30.0 Vasomotor Medicine - Ccmob N.P. rhinitis R53.83 Other fatigue M54.5 Low back pain I25.10 Athscl heart disease of [place] coronary artery w/o ang pctrs G47.00 Insomnia, unspecified Assessments Date Code Description Provider 09/11/2019 G47.33 Obstructive sleep apnea (adult) Sarah Warren MD (pediatric) 09/11/2019 R53.83 Other fatigue Sarah Warren MD 09/11/2019 G47.00 Insomnia, unspecified Sarah Warren MD 05/26/2019 I25.10 Atherosclerotic heart disease of [place] Liborio Nelson, DO [facility] coronary artery without angina pectoris 05/26/2019 I25.2 Old myocardial infarction Liborio Nelson, DO [facility] 05/26/2019 E78.5 Hyperlipidemia, unspecified Liborio Nelson, DO FAC 05/26/2019 E78.1 Pure hyperglyceridemia Liborio Nelson, DO [facility] 05/04/2019 I25.5 Ischemic cardiomyopathy Liborio Nelson, DO [facility] 05/04/2019 I25.5 Ischemic cardiomyopathy Traveling ECHO 1 04/12/2019 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 04/12/2019 R53.83 Other fatigue Hina Varn, N.P. 04/12/2019 M54.5 Low back pain Hina Varn, N.P. 04/12/2019 I25.10 Atherosclerotic heart disease of [place] Hina Varn, N.P. coronary artery without angina pectoris 04/12/2019 G47.00 Insomnia, unspecified Hina Varn, N.P. Plan of Treatment 09/11/2019 - Sarah Warren MDG47.33 Obstructive sleep apnea (adult) (pediatric )Follow up:3 plvuvyT17.83 Other ptlrpgpW71.00 Insomnia, unspecifiedNew Medication:Sonata 5 mg - 1 tab by mouth as needed for sleep Functional Status Description No Information Available Mental Status Description No Information Available Referrals Description No Information Available
--- OUTSIDE RECORDS SUMMARY | 2019-09-24 01:38 | XMS REPORT | Continuity of Care Document ---
:1960 External Reference #:[id number] Author Name Sarah Warren MD (transmitted by agent of provider Opal Hanks) Address [address], [address] [place] [id number] Problems Active Problems Provider Date Hyperlipidemia Traci Santizo M.D., FACP Onset: 09/10/2010 [facility] Onset: 09/10/2010 Essential hypertension Hina Sinha, N.P. 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 Onset: 01/12/2018 disc Atherosclerotic heart disease of Stevan Acosta M.D., [facility], [facility] Onset: 2018 [place] coronary artery without angina pectoris St elevation (Stemi) myocardial Stevan Acosta M.D., [facility] Onset: 2018 infarction involving right coronary artery Encounter for planned postprocedural Stevan Acosta M.D., [facility], [facility] Onset: wound closure Social History Type Date [...] 25tabs I25.10 Liborio S. 01/11/2019 0.4mg Tablets Sub DO MARIBEL Nelson Clopidogrel Bisulfate 1 by mouth every 90tabs Liborio S. 75mg day DO MARIBEL Nelson Tablets Aspirin 81 1 by mouth every 90tabs Liborio S. 81mg Tablets DR wild Nelson DO FACC History Medications Azelastine HCL Use 1 inhalation in 30ml J30.0 Hina Sinha, 04/12/2019 - (Nasal) each nostril at N.P. 08/16/2019 0.15% bedtime Solution Immunizations CPT Code Status Date Vaccine Lot # [id number] Given 05/12/2019 Influenza Virus Vaccine, Quadrivalent, Split, Preservative Free 81819 Given 01/07/2007 Tdap - Tetanus/Diptheria/Acellular Pertussis [id number] Given 01/07/2007 Tdap - Tetanus/Diptheria/Acellular Pertussis Vital [...] Test Result H/L Range Note Order 05/04/2019 [facility] Echocardiogram <pending > [facility] [place] [address] [phone] Procedures Date Code Description Status 05/04/2019 97425 ECHO Transthoracic, Real-Time 2D With Doppler And Color Completed Flow 05/04/2019 17442 ECHO Transthoracic, Real-Time 2D With Doppler And Color Completed Flow 05/29/2013 [id number] Colonoscopy Completed Medical Devices Description No Information Available Encounters Type Date Location Provider Dx Diagnosis Office Visit 09/11/2019 Pulmonology And Sarah Kelvin, G47.33 Obstructive sleep 9:00a [facility] Services Of apnea (adult) [facility] (pediatric) R53.83 Other fatigue G47.00 Insomnia, unspecified Office Visit 05/26/2019 4:00p [facility] Liborio Schneider I25.10 Athscl heart Of [facility] Omar DO disease of FACC [place] coronary artery w/o ang pctrs I25.2 Old myocardial infarction E78.5 Hyperlipidemia, unspecified E78.1 Pure hyperglyceridemia Office Visit 04/12/2019 10:40a [facility] Internal Hina Sinha, J30.0 Vasomotor Medicine - Ccmob N.P. rhinitis R53.83 Other fatigue M54.5 Low back pain I25.10 Athscl heart disease of [place] coronary artery w/o ang pctrs G47.00 Insomnia, unspecified Assessments Date Code Description Provider 09/11/2019 G47.33 Obstructive sleep apnea (adult) Sarah Warren MD (pediatric) 09/11/2019 R53.83 Other fatigue Sarah Warren MD 09/11/2019 G47.00 Insomnia, unspecified Sarah Warren MD 05/26/2019 I25.10 Atherosclerotic heart disease of [place] Liborio Nelson, DO [facility] coronary artery without angina pectoris 05/26/2019 I25.2 Old myocardial infarction Liborio Nelson, DO [facility] 05/26/2019 E78.5 Hyperlipidemia, unspecified Liborio Nelson, DO [facility] 05/26/2019 E78.1 Pure hyperglyceridemia Liborio Nelson, DO [facility] 05/04/2019 I25.5 Ischemic cardiomyopathy Liborio Nelson, DO [facility] 05/04/2019 I25.5 Ischemic cardiomyopathy Traveling ECHO 1 04/12/2019 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 04/12/2019 R53.83 Other fatigue Hina Varn, N.P. 04/12/2019 M54.5 Low back pain Hina Varn, N.P. 04/12/2019 I25.10 Atherosclerotic heart disease of [place] Hina Varn, N.P. coronary artery without angina pectoris 04/12/2019 G47.00 Insomnia, unspecified Hina Varn, N.P. Plan of Treatment 09/11/2019 - Sarah Warren MDG47.33 Obstructive sleep apnea (adult) (pediatric )Follow up:3 [id number] Other pwvqkwdK50.00 Insomnia, unspecifiedNew Medication:Sonata 5 mg - 1 tab by mouth as needed for sleep Functional Status Description No Information Available Mental Status Description No Information Available Referrals Description No Information Available
== END 2019-09-24 01:30 | disposition home or self-care (01) ==
LOC: ED 22:39
DX: R11.2 Nausea with vomiting, unspecified (principal); E78.00 Pure hypercholesterolemia, unspecified; R51 Headache; Z79.82 Long term (current) use of aspirin; Z79.899 Other long term (current) drug therapy; Z95.5 Presence of coronary angioplasty implant and graft
CPT/HCPCS: 36415; 74177; 80053; 83605; 83690; 84484; 85025; 86140; 93005; 96361; 96374; 96375; 99283; A9270-GY; J2405; J2765; Q9967